=== PATIENT | male | born 1980 | race Caucasian/White ===

== ENCOUNTER 2021-04-13 17:53 | Emergency (ER) | payer OTHER, SELFPAY ==
[~2021-04-13] VITALS: Ht 170.2 cm; Wt 85.3 kg
[2021-04-13 18:09] VITALS: BP_SYST 149
[2021-04-13 18:46] LABS: BILIRUBIN,URINE NEGATIVE (NEGATIVE); BLOOD, URINE NEGATIVE (NEGATIVE); COLOR,URINE YELLOW (YELLOW); GLUCOSE,URINE NEGATIVE (NEGATIVE); KETONES,URINE NEGATIVE (NEGATIVE); LEUKOCYTE ESTERASE ,URINE NEGATIVE (NEGATIVE); NITRITE, URINE NEGATIVE (NEGATIVE); PH,URINE 7.5 (5.0-8.0); PROTEIN URINE NEGATIVE (NEGATIVE); UROBILINOGEN,URINE 0.2 (0.2-1.0)
[2021-04-13 18:55] LABS: CLARITY/URINE SLIGHTLY HAZY (CLEAR)
[2021-04-13] MEDS ORDERED: IBUPROFEN 600 MG TABLET PO ONE (19:00)
[2021-04-13] MEDS ORDERED: IBUP-1969 PO ×2 (19:01→21:58)
[2021-04-13] MEDS ORDERED: CIPR500T5 PO ×2 (19:01→21:58)
[2021-04-13 22:01] VITALS: BP_SYST 140
== END 2021-04-13 22:01 | disposition home or self-care (01) ==
LOC: SED 17:53
DX: N45.1 Epididymitis (principal); Z79.899 Other long term (current) drug therapy; Y99.0 Civilian activity done for income or pay
CPT/HCPCS: 76870-TC; 81003; 99284